=== PATIENT | female | born 1995 | race Caucasian/White ===

== ENCOUNTER 2017-02-12 17:26 | Emergency (ER) | payer MEDICAID ==
[~2017-02-12] VITALS: Ht 157.5 cm; Wt 52.0 kg
[2017-02-12 17:29] VITALS: Ht 157.5 cm; Wt 52.0 kg
[2017-02-12] MEDS ORDERED: morphine 2 MG INJ IV ONE (19:00)
[2017-02-12] MEDS ORDERED: AMPICILLIN/SULB 1.5GM/NS (PMX) 50 ML IVPB ONE (19:00)
--- NOTE | 2017-02-12 19:54 | RADRPT ---
AMENDMENT: 02/13/2017 3:08:50 AM Rocael Cooley M.d IMPRESSION: 1. Asymmetric enlargement of the right palatine tonsil, suggestive of tonsillitis. Evaluation for a tonsillar abscess is precluded by the lack of contrast. The right parapharyngeal space fat is mini kasia infiltrated. 2. Numerous small bilateral cervical lymph nodes, probably reactive. 3. Mild fatty atrophy of the bilateral parotid and submandibular glands, nonspecific. 4. Reversal of the cervical lordosis. PROCEDURE: CT scan of the neck without contrast. CLINICAL INDICATION: Unilateral tonsillar swelling. TECHNIQUE: A CT scan of the neck was performed without intravenous contrast. Coronal and sagittal reformats were generated. CTDIvol: 9.15 mGy. DLP: 220.14 mGy-cm. One or more of the following dose reduction techniques were used: - Automated exposure control. - Adjustment of the mA and/or kV according to patient size. - Use of iterative reconstruction technique. COMPARISON: None. FINDINGS: Evaluation of the cervical soft tissues is limited without intravenous contrast. The right palatine tonsil is asymmetrically enlarged. Evaluation for a tonsillar abscess is precluded by the lack of c ontrast. The right parapharyngeal space fat is minimally infiltrated. No mass is identified in the suprahyoid and infrahyoid spaces of the neck. There are numerous small bilateral cervical lymph nod es, probably reactive. There is mild fatty atrophy of the bilateral parotid and submandibular gland s. No suspicious thyroid lesion is identified. The carotid arteries are unremarkable. The visualized intracranial structures are unremarkable. The visualized paranasal sinuses and masto id air cells are clear. The lung apices are also clear. There is reversal of the cervical lordosis. IMPRESSION: 1. Asymmetry larger than the right palatine tonsil, suggestive of tonsillitis. Evaluation for a ton sillar abscess is precluded by the lack of contrast. The right parapharyngeal space fat is minimall y infiltrated. 2. Numerous small bilateral cervical lymph nodes, probably reactive. 3. Mild fatty atrophy of the bilateral parotid and submandibular glands, nonspecific. 4. Reversal of the cervical lordosis. RPTAT: HTAR .Rocael Cooley MD, MD Date Time Electronically viewed and signed by .Rocael Cooley MD, MD on 02/13/2017 03:09 .R/
[2017-02-12] MEDS ORDERED: HYDR-906 PO (21:11)
[2017-02-12] MEDS ORDERED: AMOX1TAB10 PO (21:11)
[2017-02-12] MEDS ORDERED: NAPR-260 PO (21:14)
--- NOTE | 2017-02-12 21:21 | ERD ---
ER Documentation Chief Complaint Date/Time DATE: 02/12/17 TIME: 21:[address] X 2 DAYS HPI 21-year-old female presents for 2 days of increasing sore throat. She still able to swallow her secretions and liquids but does have significant throat pain. She has had no fevers and chills yet. She denies any current nausea or vomiting. She has no shortness of breath or cough. ROS All systems reviewed and are negative except as per history of present illness. 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 Bilateral tonsillar swelling with erythema and exudates, right-sided soft palate has some depression and has more tonsillar swelling in the left. There is mild uvular deviation. Neck: Full range of motion..~Left anterior cervical adenopathy. 1 cm tender node. Results 24 hrs Current Medications Medications (Trade) Dose Ordered Sig/Tang Route PRN Reason Start Time Stop Time Status Last Admin Dose Admin Ampicillin Sodium/ Sulbactam Sodium (Unasyn 1.5gm/NS (Pmx)) 50 ml @ 100 mls/hr ONCE ONCE IVPB 02/12/17 19:00 02/12/17 19:29 DC 02/12/17 20:43 Morphine Sulfate (morphine) 2 mg ONCE ONCE IV 02/12/17 19:00 02/12/17 19:01 DC 02/12/17 20:31 Procedures/MDM Acute tonsillitis without current abscess. Patient does have one side swelling worse than the other but no fluid collection was seen on CT. She was given a dose of Unasyn IV as well as 2 mg of morphine which helped her pain greatly. Going to discharge her with Augmentin and tell her that she needs to follow-up with primary care doctor in 2 or 3 days and return to the hospital if symptoms are getting any worse or do not improve. CT soft tissue neck interpretation: Tonsillar swelling without obvious fluid collection. No bony abnormalities per Departure Diagnosis: Primary Impression: Acute bacterial tonsillitis Condition: Stable Patient Instructions: Pharyngitis, Report Pending Referrals: [facility] YOU HAVE RECEIVED A MEDICAL SCREENING EXAM AND THE RESULTS INDICATE THAT YOU DO NOT HAVE A CONDITION THAT REQUIRES URGENT TREATMENT IN THE EMERGENCY DEPARTMENT. FURTHER EVALUATION AND TREATMENT OF YOUR CONDITION CAN WAIT UNTIL YOU ARE SEEN IN YOUR DOCTORS OFFICE WITHIN THE NEXT 1-2 DAYS. IT IS YOUR RESPONSIBILITY TO MAKE AN APPOINTMENT FOR FOLOW-UP CARE. IF YOU HAVE A PRIMARY DOCTOR --you should call your primary doctor and schedule an appointment IF YOU DO NOT HAVE A PRIMARY DOCTOR YOU CAN CALL OUR PHYSICIAN REFERRAL HOTLINE AT IF YOU CAN NOT AFFORD TO SEE A PHYSICIAN YOU CAN CHOSE FROM THE FOLLOWING [facility] [address] [facility] [address] [facility] [address] [facility] [address] [facility] [address] [facility]. [facility]. [address] Additional Instructions: Call your primary care doctor TOMORROW for an appointment during the next 1-2 days.See the doctor sooner or return here if your condition worsens before your appointment time. DE MCGOVERN DO February 12, 2017 21:21
[2017-02-12 21:38] VITALS: BP 108/63; PULSE 98; RESP 18; TEMP 98
== END 2017-02-12 21:39 | disposition home or self-care (01) ==
LOC: FTE 17:26
DX: J03.80 Acute tonsillitis due to other specified organisms (principal); B96.89 Other specified bacterial agents as the cause of diseases classified elsewhere
CPT/HCPCS: 70490; 96374; 96375; J0295; J2270; Z7502

== ENCOUNTER 2017-03-01 09:30 | Emergency (ER) | payer MEDICAID ==
[~2017-03-01] VITALS: Ht 160 cm; Wt 54.0 kg
[~2017-03-01 09:30] MED LIST: AMOX1TAB10 PO; HYDR-906 PO; NAPR-260 PO
[2017-03-01 09:34] VITALS: Ht 160 cm; Wt 54.0 kg
[2017-03-01] MEDS ORDERED: CLINDAMYCIN 300 MG INJ IM ONE (10:30)
--- NOTE | 2017-03-01 10:33 | ERD ---
ER Documentation Chief Complaint Date/Time DATE: 03/01/17 TIME: 10:31 Chief Complaint R HAND PINKEY SWOLLEN AND PAINFUL HPI Is a 21-year-old female who presents to the emergency department today complaining of right fifth finger pain and swelling and redness for the past 2 days. Denies any trauma. Denies being bit by any insect bite. Denies any fevers or chills. ROS All systems reviewed and are negative except as per history of present illness. Medications Home Meds Active Scripts Naproxen* (Naprosyn*) 500 Mg Tablet, 500 MG PO BID Y for PAIN AND/OR INFLAMMATION, #30 TAB Prov:DE MCGOVERN DO 02/12/17 Hydrocodone/Acetaminophen ([place] 5-325 Tablet) 1 Each Tablet, 1 EACH PO Q6, #14 TAB Prov:DE MCGOVERN DO 02/12/17 Amoxicillin/Potassium Clav (Amox-Clav 875-125 mg Tablet) 875-125 mg Tab, 1 TAB PO BID, #20 TAB Prov:DE MCGOVERN DO 02/12/17 Allergies Allergies: Coded Allergies: No Known Drug Allergies (Verified Allergy, Mild, 03/01/17) PMhx/Soc History of Surgery: Yes (brain surgery due to tumor 3 yrs ago) Anesthesia Reaction: No Hx Neurological Disorder: No Hx Respiratory Disorders: No Hx Cardiac Disorders: No Hx Psychiatric Problems: No Hx Miscellaneous Medical Probl: No Hx Alcohol Use: No Hx Substance Use: No Hx Tobacco Use: No Physical Exam Vitals Vital Signs Date Time Temp Pulse Resp B/P Pulse Ox O2 Delivery O2 Flow Rate FiO2 03/01/17 09:34 97.1 18 16 116/61 100 Physical Exam Const: No acute distress Head: Atraumatic Eyes: Normal Conjunctiva ENT: Normal External Ears, Nose and Mouth. Neck: Full range of motion..~ No meningismus. Resp: Clear to auscultation bilaterally Cardio: Regular rate and rhythm, no murmurs Skin: No petechiae or rashes MSK: Right hand with no obvious deformity. Mild effusion over fifth finger and palmar aspect of the MCP joint of the fifth finger with localized erythema and warmth. Pulses 2+. Distal neurovascularly intact Neur: Awake and alert Psych: Normal Mood and Affect Results 24 hrs Current Medications Medications (Trade) Dose Ordered Sig/Tang Route PRN Reason Start Time Stop Time Status Last Admin Dose Admin Clindamycin Phosphate (Cleocin) 600 mg ONCE ONCE IM 03/01/17 10:30 03/01/17 10:31 DC 03/01/17 10:54 Ibuprofen (Motrin) 800 mg ONCE ONCE PO 03/01/17 11:00 03/01/17 11:01 DC 03/01/17 10:53 DIAGNOSTIC IMAGING REPORT Patient: CHENG CRESPO : 1995 Age: 21 Sex: F MR #: [id number] DOS: 03/01/17 0000 Ordering MD: HALEY RODRIGUEZ PA-C Location: [facility] Room/Bed: PROCEDURE: XR finger CLINICAL INDICATION: Right fifth digit pain and swelling TECHNIQUE: 3 views of the right fifth digit were obtained. COMPARISON: No prior studies are available for comparison. FINDINGS: There is mild soft tissue swelling of the fifth digit without evidence of acute fracture or radiopaque foreign body. Joint spaces are preserved. IMPRESSION: 1. Mild soft tissue swelling of the fifth digit without evidence of acute fracture or radiopaque foreign body. RPTAT: UU .Glen Chu MD, MD Date Time Electronically viewed and signed by .Glen Chu MD, MD on 03/01/2017 11: 05 .K/ CC: HALEY RODRIGUEZ PA-C Procedures/MDM Is a 21-year-old female who presents to the emergency department today complaining of right hand swelling and redness and finger pain. On physical exam patient did have some erythema, warmth and swelling over the palmar aspect of her fifth finger especially at the MCP joint. Did have Dr. Damian see and evaluate the patient he feels that she is appropriate for an x-ray and dosage of antibiotics here in the emergency department. He does not feel the patient requires admission or further workup at this time. Patient is afebrile and otherwise well-appearing. Per the radiology report images of the right hand show mild soft tissue swelling of the fifth digit without evidence of acute fracture or radiopaque foreign body. Joint spaces are preserved. Patient symptoms at this time is consistent with cellulitis. Again she is afebrile and otherwise well-appearing. Low suspicion for sepsis, deep space infection, flexor tenosynovitis at this time. Patient was given clindamycin and Motrin here in the emergency department. She will be given a prescription for Bactrim and Keflex for home and instructed to return for follow-up in 48 hours. Patient will be given a prescription for Tylenol and Motrin. At this time the patient is stable for discharge and outpatient management. Patient should follow up with their PCP in the next 1-2 days. They may return to the emergency department sooner for any persistent or worsening of symptoms. Patient understood and agreed with the plan. HALEY RODRIGUEZ PA-C Mar 01, 2017 10:33
[2017-03-01] MEDS ORDERED: IBUPROFEN 800 MG TAB PO ONE (11:00)
--- NOTE | 2017-03-01 11:05 | RADRPT ---
PROCEDURE: XR finger CLINICAL INDICATION: Right fifth digit pain and swelling TECHNIQUE: 3 views of the right fifth digit were obtained. COMPARISON: No prior studies are available for comparison. FINDINGS: There is mild soft tissue swelling of the fifth digit without evidence of acute fracture or radiopaq ue foreign body. Joint spaces are preserved. IMPRESSION: 1. Mild soft tissue swelling of the fifth digit without evidence of acute fracture or radiopaque fo reign body. RPTAT: UU .Glen Chu MD, Date Time Electronically viewed and signed by .Glen Chu MD, on 03/01/2017 11:05 .K/
[2017-03-01] MEDS ORDERED: ACET500C5 PO (11:41)
[2017-03-01] MEDS ORDERED: IBUP-1542 PO (11:41)
[2017-03-01] MEDS ORDERED: CEPH-443 PO (11:42)
[2017-03-01] MEDS ORDERED: SULF1TAB31 PO (11:42)
== END 2017-03-01 11:58 | disposition home or self-care (01) ==
LOC: FTE 09:30
DX: M79.644 Pain in right finger(s) (principal)
CPT/HCPCS: 73140; Z7610; 96372

== ENCOUNTER 2017-06-25 19:18 | Emergency (ER) | payer SELFPAY ==
[~2017-06-25] VITALS: Ht 157.5 cm; Wt 57.5 kg
[~2017-06-25 19:18] MED LIST changes: +ACET500C5 PO; +CEPH-443 PO; +IBUP-1542 PO; +SULF1TAB31 PO
[2017-06-25 21:51] VITALS: Ht 157.5 cm; Wt 57.5 kg
[2017-06-25] MEDS ORDERED: KETOROLAC 15 MG INJ IM STA (22:05)
--- NOTE | 2017-06-25 22:05 | ERD ---
ER Documentation Chief Complaint Date/Time DATE: 06/25/17 TIME: 22:02 Chief Complaint abscess at back of neck HPI This 21-year-old female presents to emergency department for evaluation of a 3 day hx of tender nodule posterior neck , nodule causing lynne 8/10 temporal denies change in vision, blurred vision . 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 She denies that she has picked at it, has not noticed any spontaneous drainage from nodule. Patient has her hair up, and a visible scab noted. ROS All systems reviewed and are negative except as per history of present illness. Medications Home Meds Active Scripts Cephalexin* (Keflex*) 500 Mg Capsule, 500 MG PO QID for 7 Days, CAP Prov:PROHALEY CARTWRIGHT PA-C 03/01/17 Sulfamethoxazole/Trimethoprim* (Bactrim Ds* Tablet) 1 Each Tablet, 1 TAB PO BID for 7 Days, #14 TAB Prov:PROHALEY CARTWRIGHT-C 03/01/17 Acetaminophen* (Tylophen*) 500 Mg Capsule, 1 CAP PO Q6H Y for PAIN AND OR ELEVATED TEMP, #30 CAP Prov:PROHALEY CARTWRIGHT PA-C 03/01/17 Ibuprofen* (Motrin*) 600 Mg Tab, 600 MG PO Q6, #30 TAB Prov:PROHALEY CARTWRIGHT PA-C 03/01/17 Naproxen* (Naprosyn*) 500 Mg Tablet, 500 MG PO BID Y for PAIN AND/OR INFLAMMATION, #30 TAB Prov:DE MCGOVERN DO 02/12/17 Hydrocodone/Acetaminophen (Tamaroa 5-325 Tablet) 1 Each Tablet, 1 EACH PO Q6, #14 TAB Prov:DE MCGOVERN DO 02/12/17 Amoxicillin/Potassium Clav (Amox-Clav 875-125 mg Tablet) 875-125 mg Tab, 1 TAB PO BID, #20 TAB Prov:DE MCGOVERN DO 02/12/17 Allergies Allergies: Coded Allergies: No Known Drug Allergies (Verified Allergy, Mild, 03/01/17) PMhx/Soc History of Surgery: Yes (brain surgery due to tumor ) Anesthesia Reaction: No Hx Neurological Disorder: No Hx Respiratory Disorders: No Hx Cardiac Disorders: No Hx Psychiatric Problems: No Hx Miscellaneous Medical Probl: No Hx Alcohol Use: No Hx Substance Use: No Hx Tobacco Use: No Physical Exam Vitals Vital Signs Date Time Temp Pulse Resp B/P Pulse Ox O2 Delivery O2 Flow Rate FiO2 06/25/17 21:51 98.7 84 20 110/69 100 Vitals stable, triage notes reviewed Physical Exam Const: Well-nourished well-hydrated well-appearing no acute distress Head: Atraumatic Eyes: Normal Conjunctiva, PERRLA, EOMI ENT: Neck: Full range of motion. Resp: Cardio: Abd: Soft, non tender, non distended. Normal bowel sounds Skin: Soft scabbed nodule without erythema posterior superior neck. Back: Ext: Neur: Awake and alert Psych: Normal Mood and Affect Results 24 hrs Current Medications Medications (Trade) Dose Ordered Sig/Tang Route PRN Reason Start Time Stop Time Status Last Admin Dose Admin Ketorolac Tromethamine (Toradol) 15 mg ONCE STAT IM 06/25/17 22:05 06/25/17 22:07 DC 06/25/17 22:37 Lidocaine (Xylocaine 1% (Mdv) 20 ml) 20 ml STK-MED ONCE .ROUTE 06/25/17 22:57 06/25/17 22:58 DC Procedures/MDM This 21-year-old female presents to emergency department for evaluation of a painful nodule on the back of her neck. Patient denies picking at it nausea, vomiting, fever, chills, change in vision or change in range of motion. Physical exam supports a suspected boil, spontaneous rupture with secondary scab in place scab removed by myself without any bleeding fully healed no purulent discharge, patient reports headache located on templates, emergency room course includes treatment with intramuscular Toradol patient reassessed after 30 minutes with improvement in headache, plan to discharge patient home the protein 800 mg 1 tab p.o. every 8 hours as needed headache follow-up with primary care physician for full evaluation of headaches.. Patient is stable with no new complaints during ER course, clinically there is no current evidence to suggest meningitis, abscess, cancerous mass, folliculitis or any other emergent condition appearing to require further evaluation or hospitalization. I feel the patient is stable for discharge at this time. I have discussed results, examination findings, the treatment plan with the patient and family present prior to discharge. Indications for emergent reevaluation, side effects of medication were also discussed. All questions were answered. Patient verbalizes understanding and agrees with plan of care. Departure Diagnosis: Primary Impression: Scab Additional Impression: LYNNE (headache) Headache type: unspecified Headache chronicity pattern: unspecified pattern Intractability: not intractable Qualified Code: R51 - Nonintractable headache, unspecified chronicity pattern, unspecified headache type Condition: Good Patient Instructions: Headache, Unspecified Additional Instructions: Thank you for for coming to [facility] for your care today. Please ask your nurse or provider if you have questions about your care today and do not leave until all your questions have been answered. Please use any medications given as directed and follow-up with your doctor (or the doctor you were referred to) in the next 2-3 days. If you do not have a primary care doctor you may follow up at the [facility] (listed below). You may also use motrin and tylenol as needed for fever and/or pain unless instructed otherwise by your provider or nurse. Indications for more urgent follow-up have been discussed, but you may return to the Emergency Department at ANY time for any worrisome or worsening symptoms. If you have abdominal pain, please know that no test or exam you received is perfect and you should follow up within 8 hours for continued pain. If you had any imaging studies today, such as an X-Ray or CT Scan, these studies will be reviewed later by a radiologist. You will be called if there are important findings that were not identified today, so make sure the contact information you provided at registration is correct. If you received any narcotic pain control medicine today, such as Vicodin, Morphine or Dilaudid, your coordination and judgment may be affected for a number of hours. Please do not drive or operate heavy machinery, and you may want someone to assist you at home. If you were given a prescription for narcotic medication, be aware that it is very addictive- use sparingly and only if necessary. LIDIA BRANDT Jun 25, 2017 22:05
[2017-06-25] MEDS ORDERED: LIDOCAINE 1% (MDV) 20 ML INJ ONE (22:57)
[2017-06-26] MEDS ORDERED: IBUP800T25 PO (00:02)
[2017-06-26 00:17] VITALS: BP 114/78; PULSE 70; RESP 20; TEMP 98.7
== END 2017-06-26 00:20 | disposition home or self-care (01) ==
LOC: FTE 19:18
DX: R23.4 Changes in skin texture (principal); R51 Headache
CPT/HCPCS: 96372; 99284; J1885

== ENCOUNTER 2018-02-21 13:13 | Emergency (ER) | END 2018-02-21 15:36 | disposition home or self-care (01) ==

== ENCOUNTER 2018-08-02 12:34 | Emergency (ER) | END 2018-08-02 13:31 | disposition home or self-care (01) ==

== ENCOUNTER 2018-10-18 12:25 | Emergency (ER) | payer SELFPAY ==
[~2018-10-18] VITALS: Ht 165.1 cm; Wt 59.0 kg
[~2018-10-18 12:25] MED LIST changes: +ACET325T33 PO; +FAMO-96 PO; +HYDR-4011 PO; -HYDR-906 PO; +IBUP800T48 PO; -NAPR-260 PO; +NAPR-985 PO; +PRED20TA PO
[2018-10-18 12:42] VITALS: BP 115/73; PULSE 90; RESP 18; Ht 165.1 cm; Wt 59.0 kg
[2018-10-18] MEDS ORDERED: CIPR500T4 PO (13:47)
--- NOTE | 2018-10-18 15:02 | ERD ---
ER Documentation Chief Complaint Chief Complaint painful urination and vaginal pain x1wk HPI 23-year-old female presenting with dysuria. Patient states she feels a pinching type pain every time she urinates. No hematuria. No back pain. No fevers. Has some mild suprapubic pressure. Denies medical problems. NKDA. Surgical history is of brain tumor removal at age 14. Social history denies ROS All systems reviewed and are negative except as per history of present illness. Medications Home Meds Active Scripts Ciprofloxacin Hcl* (Ciprofloxacin Hcl*) 500 Mg Tablet, 500 MG PO BID for 7 Days, TAB Prov:KATIA GARCIAC 10/18/18 Prednisone* (Prednisone*) 20 Mg Tab, 60 MG PO DAILY for 5 Days, TAB Prov:REYNA GUAJARDOC 08/02/18 Famotidine* (Pepcid*) 20 Mg Tablet, 20 MG PO BID for 4 Days, #30 TAB Prov:KATIA GARCIAC 02/21/18 Acetaminophen* (Tylenol*) 325 Mg Tablet, 2 TAB PO Q6 PRN for PAIN AND OR ELEVATED TEMP, #20 TAB Prov:KATIA GARCIAC 02/21/18 Ibuprofen* (Motrin*) 800 Mg Tab, 800 MG PO Q6, #30 TAB Prov:LIDIA BRANDT 06/26/17 Cephalexin* (Keflex*) 500 Mg Capsule, 500 MG PO QID for 7 Days, CAP Prov:HALEY RODRIGUEZ-C 03/01/17 Sulfamethoxazole/Trimethoprim* (Bactrim Ds* Tablet) 1 Each Tablet, 1 TAB PO BID for 7 Days, #14 TAB Prov:HALEY RODRIGUEZ-C 03/01/17 Acetaminophen* (Tylophen*) 500 Mg Capsule, 1 CAP PO Q6H PRN for PAIN AND OR ELEVATED TEMP, #30 CAP Prov:HALEY RODRIGUEZ-C 03/01/17 Ibuprofen* (Motrin*) 600 Mg Tab, 600 MG PO Q6, #30 TAB Prov:HALEY RODRIGUEZ-C 03/01/17 Naproxen* (Naprosyn*) 500 Mg Tablet, 500 MG PO BID PRN for PAIN AND/OR INFLAMMATION, #30 TAB Prov:DE MCGOVERN DO 02/12/17 Hydrocodone/Acetaminophen ([place] 5-325 Tablet) 1 Each Tablet, 1 EACH PO Q6, #14 TAB Prov:DE MCGOVERN DO 02/12/17 Amoxicillin/Potassium Clav (Amox-Clav 875-125 mg Tablet) 875-125 mg Tab, 1 TAB PO BID, #20 TAB Prov:DE MCGOVERN DO 02/12/17 Allergies Allergies: Coded Allergies: No Known Drug Allergies (Verified Allergy, Mild, 03/01/17) PMhx/Soc History of Surgery: No Anesthesia Reaction: No Hx Neurological Disorder: No Hx Respiratory Disorders: No Hx Cardiac Disorders: No Hx Psychiatric Problems: No Hx Miscellaneous Medical Probl: No Hx Alcohol Use: No Hx Substance Use: No Hx Tobacco Use: No Smoking Status: Never smoker FmHx Family History: No diabetes, No coronary disease, No other Physical Exam Vitals Vital Signs Date Temp Pulse Resp B/P (MAP) Pulse Ox O2 O2 Flow FiO2 Time Delivery Rate 10/18/18 98.0 90 18 115/73 99 12:42 (87) Physical Exam GENERAL: The patient is well-appearing, well-nourished, in no acute distress HEENT: Atraumatic. Conjunctivae are pink. Pupils equal, round, and reactive to light. There is no scleral icterus. Tympanic membranes clear bilaterally. Oropharynx clear. NECK: C-spine is soft and supple. There is no meningismus. There is no cervical lymphadenopathy. CHEST: Clear to auscultation bilaterally. There are no rales, wheezes or rhonchi. HEART: Regular rate and rhythm. No murmurs, clicks, rubs or gallops. ABDOMEN: Normal active bowel sounds. No distention. No organomegaly. Mild test palpation in the suprapubic region. BACK: No midline or flank tenderness. Results 24 hrs Laboratory Tests Test 10/18/18 13:40 10/18/18 13:44 Bedside Urine pH (LAB) 6.5 Bedside Urine Protein (LAB) 1+ Bedside Urine Glucose (UA) Negative Bedside Urine Ketones (LAB) Negative Bedside Urine Blood Trace-intact Bedside Urine Nitrite (LAB) Negative Bedside Urine Leukocyte Esterase (L 3+ POC Beta HCG, Qualitative NEGATIVE Procedures/MDM MDM: 23-year-old female presenting with dysuria. Patient symptoms and urinalysis are positive for infection. Patient be treated with antibiotics. I have low suspicion for pyelonephritis. Patient is discharged stricter precautions and told to follow-up with primary care within 1-2 days for close evaluation. All questions answered at discharge. Departure Diagnosis: Primary Impression: UTI (urinary tract infection) Condition: Stable Patient Instructions: Understanding Urinary Tract Infections (UTIs) Referrals: [facility] YOU HAVE RECEIVED A MEDICAL SCREENING EXAM AND THE RESULTS INDICATE THAT YOU DO NOT HAVE A CONDITION THAT REQUIRES URGENT TREATMENT IN THE EMERGENCY DEPARTMENT. FURTHER EVALUATION AND TREATMENT OF YOUR CONDITION CAN WAIT UNTIL YOU ARE SEEN IN YOUR DOCTORS OFFICE WITHIN THE NEXT 1-2 DAYS. IT IS YOUR RESPONSIBILITY TO MAKE AN APPOINTMENT FOR FOLOW-UP CARE. IF YOU HAVE A PRIMARY DOCTOR --you should call your primary doctor and schedule an appointment IF YOU DO NOT HAVE A PRIMARY DOCTOR YOU CAN CALL OUR PHYSICIAN REFERRAL HOTLINE AT IF YOU CAN NOT AFFORD TO SEE A PHYSICIAN YOU CAN CHOSE FROM THE FOLLOWING [facility] CLINICS [facility] [address] [facility] [address] [facility] [facility] [address] [facility] [address] [facility] [address] [facility]. [facility]. [address] Additional Instructions: FOLLOW UP WITH YOUR PRIMARY CARE PHYSICIAN TOMORROW.Return to this facility if you are not improving as expected. KATIA GARCIA PA-C Oct 18, 2018 15:02
== END 2018-10-18 13:58 | disposition home or self-care (01) ==
LOC: FTE 12:25
DX: N39.0 Urinary tract infection, site not specified (principal)
CPT/HCPCS: 81003; 81025; 99283

== ENCOUNTER 2018-10-23 20:57 | Emergency (ER) | payer SELFPAY ==
[~2018-10-23] VITALS: Ht 154.9 cm; Wt 60.0 kg
[~2018-10-23 20:57] MED LIST changes: +CIPR500T4 PO
[2018-10-23 21:17] VITALS: Ht 154.9 cm; Wt 60.0 kg
[2018-10-23] MEDS ORDERED: NITR-58 PO (22:41)
[2018-10-23 22:49] VITALS: BP 119/91; PULSE 81; RESP 18
--- NOTE | 2018-10-23 22:51 | ERD ---
ER Documentation Chief Complaint Chief Complaint pelvic pain X 5 days HPI 23-year-old female complaining of dysuria, urinary frequency, urgency, and pelvic pain times 5 days. Patient was seen here 5 days ago, was diagnosed with UTI. However, she did not fill the antibiotics prescribed for her because she did not have her Medi-[employer] activated. She was taking Azo [id number], but it did not relieve her symptoms. Denies fever or chills. Denies flank pain. Denies hematuria. ROS All systems reviewed and are negative except as per history of present illness. Medications Home Meds Active Scripts Nitrofurantoin Monohyd Macrocr* (Macrobid*) 100 Mg Capsr, 100 MG PO BID for 7 Days, CAP Prov:TODD HOGUE [employer] 10/23/18 Ciprofloxacin Hcl* (Ciprofloxacin Hcl*) 500 Mg Tablet, 500 MG PO BID for 7 Days, TAB Prov:KATIA GARCIA-C 10/18/18 Prednisone* (Prednisone*) 20 Mg Tab, 60 MG PO DAILY for 5 Days, TAB Prov:REYNA GUAJARDO-C 08/02/18 Famotidine* (Pepcid*) 20 Mg Tablet, 20 MG PO BID for 4 Days, #30 TAB Prov:KATIA GARCIA-C 02/21/18 Acetaminophen* (Tylenol*) 325 Mg Tablet, 2 TAB PO Q6 PRN for PAIN AND OR ELEVATED TEMP, #20 TAB Prov:KATIA GARCIA-C 02/21/18 Ibuprofen* (Motrin*) 800 Mg Tab, 800 MG PO Q6, #30 TAB Prov:LIDIA BRANDT 06/26/17 Cephalexin* (Keflex*) 500 Mg Capsule, 500 MG PO QID for 7 Days, CAP Prov:HALEY RODRIGUEZ-C 03/01/17 Sulfamethoxazole/Trimethoprim* (Bactrim Ds* Tablet) 1 Each Tablet, 1 TAB PO BID for 7 Days, #14 TAB Prov:HALEY RODRIGUEZ-C 03/01/17 Acetaminophen* (Tylophen*) 500 Mg Capsule, 1 CAP PO Q6H PRN for PAIN AND OR ELEVATED TEMP, #30 CAP Prov:HALEY RODRIGUEZ-C 03/01/17 Ibuprofen* (Motrin*) 600 Mg Tab, 600 MG PO Q6, #30 TAB Prov:HALEY RODRIGUEZ PA-C 03/01/17 Naproxen* (Naprosyn*) 500 Mg Tablet, 500 MG PO BID PRN for PAIN AND/OR INFLAMMAT ION, #30 TAB Prov:DE MCGOVERN DO 02/12/17 Hydrocodone/Acetaminophen (Montague 5-325 Tablet) 1 Each Tablet, 1 EACH PO Q6, #14 TAB Prov:DE MCGOVERN DO 02/12/17 Amoxicillin/Potassium Clav (Amox-Clav 875-125 mg Tablet) 875-125 mg Tab, 1 TAB PO BID, #20 TAB Prov:DE MCGOVERN DO 02/12/17 Allergies Allergies: Coded Allergies: No Known Drug Allergies (Verified Allergy, Mild, 03/01/17) PMhx/Soc Medical and Surgical Hx: pt denies Medical Hx, pt denies Surgical Hx History of Surgery: No Anesthesia Reaction: No Hx Neurological Disorder: No Hx Respiratory Disorders: No Hx Cardiac Disorders: No Hx Psychiatric Problems: No Hx Miscellaneous Medical Probl: No Hx Alcohol Use: No Hx Substance Use: No Hx Tobacco Use: No Physical Exam Vitals Vital Signs Date Temp Pulse Resp B/P (MAP) Pulse Ox O2 O2 Flow FiO2 Time Delivery Rate 10/23/18 99.2 105 18 121/80 97 21:17 (94) Physical Exam General: Well-developed, well-nourished, conscious and coherent, in no distress Skin: Warm and dry without rash, good texture and turgor Head: Normocephalic without evidence of trauma Chest: Normal AP diameter. Good expansion without retractions. Nontender. Lungs are clear to auscultate bilaterally with good tidal volume Heart: Regular rate and rhythm. No murmur, rub, or gallops heard Abdomen: Soft and nontender without masses, guarding, or rebound. Bowel sounds are active. No hepatosplenomegaly Back: Without spinal or CVA tenderness Pelvis: Suprapubic tenderness Extremities: Full range of motion. Good strength bilaterally. No erythema, ecchymosis, or edema. Peripheral pulses are intact. Sensation intact Neuro: Alert and oriented 4, GCS 15. Results 24 hrs Laboratory Tests Test 10/23/18 22:36 10/23/18 22:38 Bedside Urine pH (LAB) 7.0 Bedside Urine Protein (LAB) 2+ Bedside Urine Glucose (UA) 0.1% Bedside Urine Ketones (LAB) Negative Bedside Urine Blood 2+ Bedside Urine Nitrite (LAB) Positive Bedside Urine Leukocyte Esterase (L 3+ POC Beta HCG, Qualitative NEGATIVE Current Medications Medications Dose Sig/Tang Start Time Status Last (Trade) Ordered Route PRN Stop Time Admin Dose Reason Admin Ceftriaxone 1 gm ONCE ONCE 10/23/18 Sodium IM 23:00 (Rocephin) 10/23/18 23:01 Procedures/MDM Well-appearing 23-year-old female present ED for UTI symptoms. She was diagnosed with UTI 5 days ago, but did not take antibiotics prescribed for her. Urinate today continues show signs of urinary tract infection. She does not have any fever or CVA tenderness, I doubt pyelonephritis. Rocephin IM given to the patient in the ED. Patient also given prescription for Macrobid. Advised patient to obtain the medication [id number], I also ad vised against delayed antibiotic treatment. Patient expressed understanding. Patient appears well, stable for discharge and outpatient management. Medical decision making shared with patient and family. Education provided to patient and family. Patient and family expressed understanding of the plan. Medications on discharge: Macrobid. Follow-up: Primary care provider in 2-3 days or return to ED if worse. Disclaimer: Inadvertent spelling and grammatical errors are likely due to EHR/dictation software use and do not reflect on the overall quality of patient care. Also, please note that the electronic time recorded on this note does not necessarily reflect the actual time of the patient encounter. Departure Diagnosis: Primary Impression: UTI (urinary tract infection) Urinary tract infection type: acute cystitis Hematuria presence: with hematuria Qualified Codes: N30.01 - Acute cystitis with hematuria Condition: Stable Patient Instructions: Understanding Urinary Tract Infections (UTIs) Referrals: [facility] YOU HAVE RECEIVED A MEDICAL SCREENING EXAM AND THE RESULTS INDICATE THAT YOU DO NOT HAVE A CONDITION THAT REQUIRES URGENT TREATMENT IN THE EMERGENCY DEPARTMENT. FURTHER EVALUATION AND TREATMENT OF YOUR CONDITION CAN WAIT UNTIL YOU ARE SEEN IN YOUR DOCTORS OFFICE WITHIN THE NEXT 1-2 DAYS. IT IS YOUR RESPONSIBILITY TO MAKE AN APPOINTMENT FOR FOLOW-UP CARE. IF YOU HAVE A PRIMARY DOCTOR --you should call your primary doctor and schedule an appointment IF YOU DO NOT HAVE A PRIMARY DOCTOR YOU CAN CALL OUR PHYSICIAN REFERRAL HOTLINE AT IF YOU CAN NOT AFFORD TO SEE A PHYSICIAN YOU CAN CHOSE FROM THE FOLLOWING PENDING SALE TO [facility] [address] [facility] [address] [facility] [facility] [address] [facility] [address] [facility] [address] [facility] [facility]. [address] Additional Instructions: Call your primary care doctor TOMORROW for an appointment during the next 2-3 days.See the doctor sooner or return here if your condition worsens before your appointment time. TODD HOGUE NP Oct 23, 2018 22:51
[2018-10-23] MEDS ORDERED: CEFTRIAXONE 1 GM INJ IM ONE (23:00)
== END 2018-10-23 22:50 | disposition home or self-care (01) ==
LOC: FTE 20:57
DX: N30.01 Acute cystitis with hematuria (principal); R40.2412 Glasgow coma scale score 13-15, at arrival to emergency department
CPT/HCPCS: 81003; 81025; 96372; 99284; J0696